=== PATIENT | female | born 1980 | race Caucasian/White ===

== ENCOUNTER 2021-03-16 12:27 | Outpatient (CLI) | payer OTHER, SELFPAY ==
--- NOTE | ~2021-03-16 | XR_ITS ---
XR hip BI wo pelvis DATE: 03/16/2021 13:05 INDICATION: Bilateral hip joint pain, greater on the left TECHNIQUE: AP and lateral views of each hip COMPARISON: None FINDINGS: There is bilateral hip osteoarthritis with particularly prominent spurring of the femoral h ead on the left. 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 No fracture, dislocation, avascular necrosis or bone destruction is detected. Alignment appears prese rved at the pubic symphysis and sacroiliac joints. IMPRESSION: Prominent bilateral hip osteoarthritic arthritis, greater on the left Bilateral protrusio acetabuli Reviewed, dictated and finalized at location A. IMPRESSION: Prominent bilateral hip osteoarthritic arthritis, greater on the le ft Bilateral protrusio acetabuli
== END 2021-03-16 12:28 | disposition home or self-care (01) ==
LOC: ANHIMG 12:39
PROVIDERS: PCP Nurse Practitioner Family; Visit Provider Nurse Practitioner Family
DX: M16.0 Bilateral primary osteoarthritis of hip (principal)
CPT/HCPCS: 73521

== ENCOUNTER 2022-10-21 17:22 | Emergency (ER) | payer OTHER, SELFPAY ==
[2022-10-21] VITALS (9 sets, daily range): BP systolic 124–150; BP diastolic 79–99; PULSE 91–114; RESP 19–30; TEMP 36.4; O2SAT 97–100
--- NOTE | ~2022-10-21 | US_ITS ---
EXAMINATION: US venous doppler [facility] DATE: 10/21/2022 20:25 INDICATION: Left lower limb swelling. TECHNIQUE: Grayscale ultrasound images without and with compression and Doppler ultrasound images of the left lower extremity veins were obtained. COMPARISON: None. FINDINGS: There is thrombus in the left common femoral vein, profunda (deep) femoral vein, femoral vein, poplit eal vein, peroneal veins, and greater saphenous vein. The left posterior tibial veins are patent. IMPRESSION: 1. Extensive deep vein thrombosis in left lower limb. Reviewed, dictated and finalized at location A. MANAGER
--- NOTE | ~2022-10-21 | CT_ITS ---
EXAMINATION: CTA chest PE protocol DATE: 10/21/2022 18:54 INDICATION: Shortness of breath. TECHNIQUE: Computed tomography angiography (CTA) of the chest was performed with 100 mL Omnipaque-350 intravenous contrast timed to evaluate the pulmonary arteries. Coronal maximum intensity projection 3D-reconstructions were created by the technologist. Automated exposure control and iterative reconst ruction technique were employed. The dose-length product was 566.22 mGy-cm. COMPARISON: None. FINDINGS: There is mild atelectasis in right middle lobe. A calcified left lung nodules consistent wi th old granulomatous disease. No pleural effusion. There is an aberrant right subclavian artery. The heart size is normal. No pericardial effusion. There is no pulmonary embolus. There is a small slidin g hiatal hernia. There is mild thoracic spondylosis. IMPRESSION: 1. No pulmonary embolus. 2. Small sliding hiatal hernia. Reviewed, dictated and finalized at location A. OLETTERING MACHINE OPERATOR
--- NOTE | 2022-10-21 18:33 | ECG_ITS ---
Measurements Intervals [place] Rate: 112 P: 38 NC: 168 QRS: 21 QRSD: 81 T: 6 QT: 312 QTc: 427 Interpretive Statements SINUS TACHYCARDIA OTHERWISE NORMAL ECG ABNORMAL RHYTHM ECG NO PREVIOUS ECG AVAILABLE FOR COMPARISON Electronically Signed On 10-22-2022 15:10:10 DIRECTOR OF PUBLICATIONS by Salvador Thomas M.D.
[2022-10-21 18:46] LABS: Estimated CRCL calculation 101 ml/min; Estimated Glomerular Filt Rate > 60
[2022-10-21 18:52] LABS: Basophils Percent Auto 0.4 % (0.2-1.2); Eosinophils Absolute Auto 0.2 K/mm3 (0-0.3); Eosinophils Percent Auto 2.5 % (0-4.4); Hematocrit 30.4 % (37.0-47.0); Hemoglobin 9.1 g/dL (12.0-15.0); Immature Granulocyte Absolute 0.02 K/mm3 (0.00-0.031); Immature Granulocyte Percent A 0.3 % (0-0.5); Lymphocytes Absolute Auto 2.59 K/mm3 (0.9-3.2); Lymphocytes Percent Auto 33.9 % (18.3-44.2); Mean Corpuscular HGB Conc 29.9 g/dl (32-36); Mean Corpuscular Hemoglobin 22.4 pg (26-34); Mean Corpuscular Volume 74.7 fl (80-100); Mean Platelet Volume 9.5 fl (7.4-10.4); Monocytes Absolute Auto 0.7 K/mm3 (0.1-0.6); Monocytes Percent Auto 9.6 % (2.6-8.5); Neutrophils Absolute Auto 4.1 K/mm3 (1.3-6.7); Neutrophils Percent Auto 53.3 % (45.5-73.1); Platelet Count Result 287 k/mm3 (150-375); Red Blood Count 4.07 M/mm3 (4.2-5.4); White Blood Count 7.6 K/mm3 (4.5-10.0)
[2022-10-21 19:04] LABS: INR 1.2
[2022-10-21 19:05] LABS: Alanine Aminotransferase 36 U/L (6-35); Albumin Level 4.4 g/dL (3.5-5.1); Alkaline Phosphatase 88 U/L (38-126); Anion Gap 6 mmol/L (8-16); Aspartate Amino Transferase 31 U/L (14-36); Bilirubin,Total 0.6 mg/dL (0.2-1.3); Blood Urea Nitrogen 17 mg/dL (7-17); Calcium 9.1 mg/dL (8.4-10.2); Carbon Dioxide 26 mmol/L (22-30); Chloride 102 mmol/L (98-107); Estimated CRCL calculation 113 ml/min; Estimated Glomerular Filt Rate > 60; Glucose 123 mg/dL (65-110); Partial Thromboplastin Time 32.4 SECONDS (22.3-36.8); Potassium 3.8 mmol/L (3.4-5.0); Sodium 134 mmol/L (137-145)
[2022-10-21 19:27] LABS: Anisocytosis 1+ (NORMAL); Hypochromasia 1+ (NORMAL); Microcytosis 1+ (NORMAL); Ovalocytes 1+ (NORMAL); Platelet Estimate Adequate (Adequate); Schistocytes None Seen (NORMAL)
[2022-10-21 20:18] LABS: Influenza A QL RT-PCR Negative (Negative); Influenza B QL RT-PCR Negative (Negative); RSV RNA, RT-PCR Negative (Negative); SARS-CoV-2 RNA PCR Negative
--- NOTE | 2022-10-21 20:34 | ED.GENADULT ---
HPI - General Adult General Chief complaint: Shortness of Breath/Dyspnea Stated complaint: dvt on eliquis/increased swelling Time Seen by Provider: 10/21/22 18:35 History of Present Illness HPI narrative: 42-year-old female history of DVT currently on Eliquis presented to the emergency department for evaluation of worsening left leg swelling. Patient had a postop DVT that was diagnosed on 218. Patient was also started on Eliquis at that time. Patient states she has not been ambulating much because she was worried that the clot would leave her leg. Patient reports that since then she has had some worsening shortness of breath and has had worsening leg swelling. Related Data Home Medications Medication Instructions Recorded Confirmed bupropion HCl 150 mg 24 hr tablet, 150 mg PO QAM 04/02/21 07/13/21 extended release hydrochlorothiazide 25 mg tablet 25 mg PO DAILY 04/02/21 07/13/21 terbinafine HCl 250 mg tablet 250 mg PO DAILY PRN 07/13/21 07/13/21 Allergies Allergy/AdvReac Type Severity Reaction Status Date / Time mushroom Allergy Unknown Unknown Verified 10/21/22 18:39 No Known Drug Allergies Allergy Unknown Unknown Verified 10/21/22 18:39 Review of Systems Review of Systems: CONSTITUTIONAL: Denies fever, chills, or sweats. EYES: Denies visual changes, redness, or discharge. ENT: Denies rhinorrhea, congestion, sore throat, or otalgia. CARDIOVASCULAR: Denies chest pain, palpitations, or edema. RESPIRATORY: See HPI GASTROINTESTINAL: Denies abdominal pain, nausea, vomiting, or diarrhea. GENITOURINARY: Denies dysuria or hematuria. SKIN: Denies rash or itching. MUSCULOSKELETAL: See HPI NEUROLOGIC: Denies headache, numbness, or weakness. PSYCHIATRIC: Denies anxiety or depression. [facility] Past Medical History Medical History Edema of lower extremity (~04/24/19) Hair loss (~04/24/19) History of anxiety History of food allergy (~07/10/20) History of iron deficiency anemia (~08/12/20) History of mixed hyperlipidemia (~04/24/19) History of mood disorder (~04/24/19) History of obesity (~12/26/18) History of vitamin D deficiency (~04/24/19) Left foot pain (~03/11/21) Pain of both hip joints (~03/14/21) Prehypertension (~12/26/18) Skin lesion (~03/11/21) Surgical History Surgical History History of tubal ligation (~09/29/10) Family History Family History Grandparent Malignant phyllodes tumor of breast Diabetes mellitus Mother Congestive cardiac failure Father Diabetes mellitus Social History Social History Smoking status: Never smoker Alcohol intake: never Substance use: never Exam Narrative: APPEARANCE: Well appearing, no pain, no distress, well-nourished. HEAD: normocephalic, atraumatic. EYES: PERRLA/EOMI, conjunctivae clear. NECK: Supple. No adenopathy, no masses. RESPIRATORY: Airway patent, respirations nonlabored. Clear to auscultation bilaterally, no rales, rhonchi, wheezing. CARDIOVASCULAR: Regular rate and rhythm without murmurs rubs or gallops. ABDOMINAL: Soft, nontender, nondistended, normal bowel sounds MUSCULOSKELETAL: Left lower extremity edema, pulses intact NEURO: Alert. Cranial nerves II through XII intact. SKIN: No evidence of cellulitis on left lower extremity PSYCHIATRIC: Normal affect/mood. Course Course Emergency Course: 42-year-old female with worsening left lower extremity edema with associated shortness of breath. 8:35 PM ultrasound was negative for pulmonary embolism. CTA was ordered to rule out pulmonary embolism due to patient having worsening shortness of breath. CTA showed no evidence of pulmonary embolism. Patient was negative for COVID RSV and influenza. Patient and family were updated on the results of the work-up. All question concerns were
== END 2022-10-21 21:05 | disposition home or self-care (01) ==
PROVIDERS: Emergency Provider Emergency Medicine; PCP Nurse Practitioner Family
DX: T81.72XA Complication of vein following a procedure, not elsewhere classified, initial encounter (principal); I82.412 Acute embolism and thrombosis of left femoral vein; I82.452 Acute embolism and thrombosis of left peroneal vein; I82.432 Acute embolism and thrombosis of left popliteal vein; I82.812 Embolism and thrombosis of superficial veins of left lower extremity; Z20.822 Contact with and (suspected) exposure to COVID-19; D50.9 Iron deficiency anemia, unspecified; E78.2 Mixed hyperlipidemia; E55.9 Vitamin D deficiency, unspecified; E66.9 Obesity, unspecified; Z68.34 Body mass index [BMI] 34.0-34.9, adult; F41.9 Anxiety disorder, unspecified; Z79.01 Long term (current) use of anticoagulants
CPT/HCPCS: 71275; 80053; 85025; 85610; 85730; 87637; 93005; 93971; 99284; Q9967